=== PATIENT | male | born 1965 | race Caucasian/White ===

== ENCOUNTER 2017-01-29 16:41 | Emergency (ER) | payer MEDICAID ==
[2017-01-29 16:51] VITALS: BP 106/71; PULSE 84; RESP 18; TEMP 97.6; BMI 25.6
--- NOTE | 2017-01-29 17:27 | C.PDOC ---
History Of Present Illness 51 yr old male presents to the ER with complaints of intermittent pain over the back of neck for the past 2 months. Patient states the pain is localized from occipital area down to the upper back, describes as "stiffness", worse with head rotation. Otherwise, pt denies trauma or injury, fever, chills, recent illness, vision changes, focal deficits, denies severe headache, dizziness, nausea, vomiting, sore throat, CP, SOB, dyspnea, denies weakness or numbness to B/L UEs. Ambulate to ED for evaluation, not in any apparent distress. Time Seen by Provider: 01/29/17 16:56 Chief Complaint (Nursing): Headache History Per: Patient History/Exam Limitations: no limitations Onset/Duration Of Symptoms: Intermittent Episodes (2 months ) Past Medical History Reviewed: Historical Data, Nursing Documentation, Vital Signs Vital Signs: Last Vital Signs Temp 97.6 F 01/29/17 18:23 Pulse 84 01/29/17 18:23 Resp 18 01/29/17 18:23 BP 106/71 01/29/17 18:23 Pulse Ox 100 01/29/17 18:23 - Medical History PMH: Chronic Kidney Disease - [facility] Procedures ANAL FISTULECTOMY (12/01/14) RADICAL EXCIS SKIN LES (12/01/14) Family History: States: No Known Family Hx - Social History Hx Tobacco Use: No Hx Alcohol Use: No Hx Substance Use: No - Immunization History Hx Tetanus Toxoid Vaccination: No Hx Influenza Vaccination: No Hx Pneumococcal Vaccination: No Review Of Systems Except As Marked, All Systems Reviewed And Found Negative. Constitutional: Negative for: Fever, Chills Eyes: Negative for: Vision Change Gastrointestinal: Negative for: Nausea, Vomiting Musculoskeletal: Positive for: Neck Pain (Occipital area down to the upper back) Neurological: Negative for: Weakness, Numbness, Headache, Dizziness Physical Exam - Physical Exam Appears: Well, Non-toxic, No Acute Distress Skin: Warm, Dry, No Rash Head: Normacephalic Eye(s): bilateral: PERRL Oral Mucosa: Moist, No Drooling, No Trismus Neck: Normal ROM, No Decreased ROM, Trachea Midline, No Midline Cervical Tenderness, Paracervical Tenderness (diffuse paraspinal cervical tenderness extends from occipital area down to upper back with mod muscle spasm. no midline tenderness. no skin changes.), Supple Chest: Symmetrical, No Tenderness Cardiovascular: Rhythm Regular, No Murmur Respiratory: No Decreased Breath Sounds, No Accessory Muscle Use, No Rales, No Rhonchi, No Stridor, No Wheezing Gastrointestinal/Abdominal: Soft, No Tenderness Back: No CVA Tenderness Extremity: No Pedal Edema, No Deformity, No Swelling Neurological/Psych: Oriented x3, Normal Speech, Normal Motor, Normal Sensation, Normal Reflexes ED Course And Treatment O2 Sat by Pulse Oximetry: 99 Pulse Ox Interpretation: Normal - Other Rad X-Ray - Cervical Spine X-Ray: Viewed By Me Interpretation: no acute fx or sublux Progress Note: On re-evaluation, pt is afebrile, hemodynamicaly stable. NOn- toxic. Tolerate Po well in Ed. PulseOx 100% RA. Head: AT/NC. neck: Supple, (- ) JVD, (-) meningeal sign. Exam c/w cervical strain. ENT: exam no acute findings. Lungs: CTA B/L, BS equal B/L. neurologicaly intact. Imaging review and appears normal. Pt advised on course of ds. ref. to f/u with PMD in 2-3 days for re-eavl. return to ED if any worsening or new changes. Medical Decision Making Medical Decision Making: PLAN: * X-Ray - Cervical Spine * Tramadol PO * Valium PO Disposition Counseled Patient/Family Regarding: Studies Performed, Diagnosis, Need For Followup, Rx Given - Disposition Referrals: [facility] [Outside] Disposition: HOME/ ROUTINE Disposition Time: 17:39 Condition: STABLE Additional Instructions: Light duty to neck area, no physical activity for 1 week Take pain medication as need Follow up with PMD in 2-3 days for re-evaluation. Return to Ed if any worsening or new changes. Prescriptions: Methocarbamol [Robaxin] 500 mg PO TID #14 tab Naproxen [Naprosyn] 1 tab PO BID PRN #25 tab PRN Reason: Pain traMADol [Ultram] 50 mg PO TID #7 tab Instructions: Cervical Sprain (ED) Print Language: YI - Clinical Impression Clinical Impression: Cervical strain - PA / BUYER INTERN / Resident Statement MD/DO has reviewed & agrees with the documentation as recorded. - Scribe Statement The provider has reviewed the documentation as recorded by the Scribe Swapna Hadley All medical record entries made by the Scribe were at my direction and personally dictated by me. I have reviewed the chart and agree that the record accurately reflects my personal performance of the history, physical exam, medical decision making, and the department course for this patient. I have also personally directed, reviewed, and agree with the discharge instructions and disposition.
--- NOTE | 2017-01-29 18:02 | RAD ---
PROCEDURE: Cervical Spine Radiographs. HISTORY: Pain. COMPARISON: None available. FINDINGS: BONES: Straightening of the normal cervical lordosis may be related to muscle spasm or positioning. No acute displaced fracture identified. Dens tip obscured. DISC SPACES: Unremarkable. SOFT TISSUES: Unremarkable. No prevertebral soft tissue swelling. OTHER FINDINGS: None. IMPRESSION: Straightening of the normal cervical lordosis may be related to muscle spasm or positioning. The dens tip is obscured. No acute displaced fracture or subluxation identified.
[2017-01-29 21:34] VITALS: O2SAT 99
== END 2017-01-29 18:23 | disposition home or self-care (01) ==
LOC: C.ER 16:41
DX: S16.1XXA Strain of muscle, fascia and tendon at neck level, initial encounter (principal); X58.XXXA Exposure to other specified factors, initial encounter; Y93.9 Activity, unspecified; Y92.9 Unspecified place or not applicable

== ENCOUNTER 2018-03-17 08:55 | Emergency (ER) | payer MEDICAID, OTHER ==
[2018-03-17 08:59] VITALS: BMI 23.8
[2018-03-17 09:00] VITALS: TEMP 98.6
[2018-03-17] MEDS ORDERED: Sodium Chloride 0.9% 1,000 ML IV ONE (09:20)
[2018-03-17 09:42] LABS: BASO # 0.1 K/uL (0.0-0.2); BASO % 0.6 % (0.0-2.0); EOS # 0.1 K/uL (0.0-0.7); HEMOGLOBIN 13.8 g/dL (12.0-18.0); LYMPH # 1.1 K/uL (1.0-4.3); LYMPH % 14.2 % (20.0-40.0); MEAN CELL VOLUME 88.9 fL (80.0-94.0); MEAN CORPUSCULAR HEMOGLOBIN 31.2 pg (27.0-31.0); MEAN CORPUSCULAR HGB CONC 35.1 g/dL (33.0-37.0); MEAN PLATELET VOLUME 8.2 fL (7.2-11.7); MONO # 0.6 K/uL (0.0-0.8); MONO % 7.7 % (0.0-10.0); NEUT # 6.1 K/uL (1.8-7.0); NEUT % 76.5 % (50.0-75.0); RBC 4.43 Mil/uL (4.40-5.90); RED CELL DISTRIBUTION WIDTH 13.6 % (11.5-14.5); WHITE BLOOD COUNT 7.9 K/uL (4.8-10.8)
[2018-03-17 09:50] LABS: ALB/GLOB RATIO 1.4 (1.0-2.1); ALBUMIN 3.9 g/dL (3.5-5.0); ALT/SGPT 27 U/L (21-72); AST/SGOT 27 U/L (17-59); BLOOD UREA NITROGEN 14 mg/dL (9-20); CALCIUM 8.9 mg/dl (8.6-10.4); GFR AFRICAN-AMERICAN > 60; GFR NON-AFRICAN AMERICAN > 60
--- NOTE | 2018-03-17 09:50 | RAD ---
Date of service: 03/17/2018 HISTORY: SOB COMPARISON: No prior. TECHNIQUE: Chest PA and lateral FINDINGS: LUNGS: No active pulmonary disease. PLEURA: No significant pleural effusion identified. No pneumothorax apparent. CARDIOVASCULAR: Normal. OSSEOUS STRUCTURES: No significant abnormalities. VISUALIZED UPPER ABDOMEN: Normal. OTHER FINDINGS: None. IMPRESSION: No active disease.
--- NOTE | 2018-03-17 10:03 | C.PDOC ---
History Of Present Illness 52yo male, comes to ER for evaluation of a headache and vomiting since last night. Patient states he had some visual problems last night but resolved with visual problems on and off this morning. He denies any new weakness, numbness or tingling. He also denies any pertinent past medical history, and denies being on blood thinners. He offers no other medical complaints. Time Seen by Provider: 03/17/18 08:56 Chief Complaint (Nursing): Headache History Per: Patient History/Exam Limitations: no limitations Onset/Duration Of Symptoms: Days Current Symptoms Are (Timing): Still Present Severity: Mild Quality: "Pain" Preceeding Symptoms: Visual Disturbances Associated Symptoms: Photophobia, Other (double vision). denies: Blurred Vision , Nausea, Vomiting, Extremity Weakness Recent travel outside of the [place]: No Additional History Per: Patient Past Medical History Reviewed: Historical Data, Nursing Documentation, Vital Signs Vital Signs: Last Vital Signs Temp 98.6 F 03/17/18 08:59 Pulse 61 03/17/18 13:21 Resp 12 03/17/18 13:21 BP 109/68 03/17/18 13:21 Pulse Ox 98 03/17/18 14:20 - Medical History PMH: Chronic Kidney Disease Surgical History: No Surg Hx - [facility] Procedures ANAL FISTULECTOMY (12/01/14) RADICAL EXCIS SKIN LES (12/01/14) Family History: States: No Known Family Hx - Social History Hx Tobacco Use: No Hx Alcohol Use: No Hx Substance Use: No - Immunization History Hx Tetanus Toxoid Vaccination: No Hx Influenza Vaccination: No Hx Pneumococcal Vaccination: No Review Of Systems Except As Marked, All Systems Reviewed And Found Negative. Constitutional: Negative for: Fever, Chills Eyes: Positive for: Vision Change (now resolved) Cardiovascular: Negative for: Chest Pain Respiratory: Negative for: Shortness of Breath Gastrointestinal: Negative for: Abdominal Pain Musculoskeletal: Negative for: Back Pain Neurological: Positive for: Headache. Negative for: Weakness, Numbness, Incoordination, Change in Speech, Altered Mental Status, Dizziness Physical Exam - Physical Exam Appears: Non-toxic, No Acute Distress Skin: Warm, Dry Head: Atraumatic, Normacephalic, No Tenderness Eye(s): bilateral: Normal Inspection, PERRL, EOMI Ear(s): Bilateral: Normal Oral Mucosa: Moist Neck: Normal ROM, Supple Chest: Symmetrical Cardiovascular: Rhythm Regular Respiratory: Normal Breath Sounds Gastrointestinal/Abdominal: Normal Exam, Soft, No Tenderness Back: Normal Inspection Extremity: Normal ROM, No Tenderness, No Pedal Edema Neurological/Psych: Oriented x3, Normal Speech, Normal Cognition, Normal Cranial Nerves, Normal Motor, Normal Sensation, No Response To Commands Gait: Steady Other Neurological Findings: No Facial Palsy ED Course And Treatment - Laboratory Results Result Diagrams: 03/17/18 09:37 03/17/18 09:37 Lab Interpretation: Normal ECG: Interpreted By Me ECG Rhythm: Sinus Rhythm ECG Interpretation: No Acute Changes Rate From EC O2 Sat by Pulse Oximetry: 98 (RA) Pulse Ox Interpretation: Normal - Radiology CXR: Interpreted by Ct CXR Interpretation: Yes: No Acute Disease - CT Scan/US No standard instances Other Rad Studies (CT/US): Read By Radiologist, Radiology Report Reviewed CT/US Interpretation: DWI: No evidence of an acute or early subacute infarction. BRAIN PARENCHYMA: The punctate long TR hyper intensity at the right frontal deep white matter of uncertain origin. No additional white matter signal changes appreciated including at the corpus callosum. May reflect limited chronic microangiopathy though other etiologies are possible. The brainstem and cerebellum are normal intrinsic signal. There is no mass effect and sulcal and cisternal patterns appear unremarkable. Overall francis-white matter differentiation remains normal appearing. VENTRICLES: Unremarkable. No hydrocephalus. CRANIUM: Unremarkable. ORBITS: Grossly unremarkable. PARANASAL SINUSES/MASTOIDS: Clear. VASCULAR SYSTEM: Skull base flow voids intact. OTHER FINDINGS: None. IMPRESSION: 1. No evidence of an acute or subacute brain infarction at this time. No mass effect, cortical edema or suspicious extra-axial fluid collection. 2. A punctate focus of long TR hyperintensity is identified in the deep right frontal white matter of uncertain origin, with remaining white matter normal appearing. This could represent limited early chronic microangiopathy, though its origin is ultimately nonspecific. FINDINGS: HEMORRHAGE: No intracranial hemorrhage. BRAIN: No mass effect or edema. No atrophy or chronic microvascular ischemic changes. VENTRICLES: Unremarkable. No hydrocephalus. CALVARIUM: Unremarkable. PARANASAL SINUSES: Unremarkable as visualized. No significant inflammatory changes. MASTOID AIR CELLS: Unremarkable as visualized. No inflammatory changes. OTHER FINDINGS: None. IMPRESSION: Normal CT of the Head. No intracranial mass, hemorrhage or evidence of acute infarct. Progress Note: CT Head w/o contrast, labs and EKG ordered. Patient given IV Fluids, Reglan 10mg IV and tylenol. On re-evaluation ambulating with steady gait, feeling better, in no distress Reassessment Condition: Improved Medical Decision Making Medical Decision Making: On re-evaluation lungs clear, neuro intact, ambulating with steady gait Disposition Counseled Patient/Family Regarding: Studies Performed, Diagnosis, Need For Followup, Rx Given - Disposition Referrals: [facility] [Outside] [facility] [Outside] Disposition: HOME/ ROUTINE Disposition Time: 13:50 Condition: STABLE Additional Instructions: Follow up with your PMD or clinic for further evaluation Return to ED if any increase symptoms Prescriptions: Acetaminophen/Butalbital/Caf [Fioricet] 1 tab PO TID PRN #12 tab PRN Reason: Headache Instructions: Migraine Headache (DC) Forms: [employer] (Irish) - POA Present On Arrival: None - Clinical Impression Clinical Impression: Migraine, Headache - Scribe Statement The provider has reviewed the documentation as recorded by the Allan Hugo Provider Attestation: All medical record entries made by the Allan were at my direction and personally dictated by me. I have reviewed the chart and agree that the record accurately reflects my personal performance of the history, physical exam, medical decision making, and the department course for this patient. I have also personally directed, reviewed, and agree with the discharge instructions and disposition.
[2018-03-17] MEDS ORDERED: Sodium Chloride 0.9% 1,000 ML ONE (10:04)
--- NOTE | 2018-03-17 10:08 | CT ---
Date of service: 03/17/2018 PROCEDURE: CT HEAD WITHOUT CONTRAST. HISTORY: R/O Bleed COMPARISON: None available. TECHNIQUE: Axial computed tomography images were obtained through the head/brain without intravenous contrast. Radiation dose: Total exam DLP = 946.28 mGy-cm. This CT exam was performed using one or more of the following dose reduction techniques: Automated exposure control, adjustment of the mA and/or kV according to patient size, and/or use of iterative reconstruction technique. FINDINGS: HEMORRHAGE: No intracranial hemorrhage. BRAIN: No mass effect or edema. No atrophy or chronic microvascular ischemic changes. VENTRICLES: Unremarkable. No hydrocephalus. CALVARIUM: Unremarkable. PARANASAL SINUSES: Unremarkable as visualized. No significant inflammatory changes. MASTOID AIR CELLS: Unremarkable as visualized. No inflammatory changes. OTHER FINDINGS: None. IMPRESSION: Normal CT of the Head. No intracranial mass, hemorrhage or evidence of acute infarct.
[2018-03-17 10:56] LABS: URINE AMORPHOUS SEDIMENT RARE /ul (<OCC); URINE BACTERIA RARE (<OCC); URINE BILIRUBIN NEGATIVE (NEGATIVE); URINE BLOOD NEGATIVE (NEGATIVE); URINE CLARITY Hazy (Clear); URINE COLOR Yellow (YELLOW); URINE GLUCOSE (UA) NORMAL (Normal); URINE LEUKOCYTE ESTERASE NEG Leu/uL (Negative); URINE PROTEIN NEGATIVE (NEGATIVE); URINE UROBILINOGEN NORMAL mg/dL (0.2-1.0)
[2018-03-17 11:19] VITALS: RESP 12
--- NOTE | 2018-03-17 12:56 | MRI ---
Date of service: 03/17/2018 PROCEDURE: MRI BRAIN WITHOUT CONTRAST HISTORY: visual problems COMPARISON: None. TECHNIQUE: Multiplanar, multisequence MR images of the brain were obtained without intravenous contrast enhancement. FINDINGS: HEMORRHAGE: None DWI: No evidence of an acute or early subacute infarction. BRAIN PARENCHYMA: The punctate long TR hyper intensity at the right frontal deep white matter of uncertain origin. No additional white matter signal changes appreciated including at the corpus callosum. May reflect limited chronic microangiopathy though other etiologies are possible. The brainstem and cerebellum are normal intrinsic signal. There is no mass effect and sulcal and cisternal patterns appear unremarkable. Overall francis-white matter differentiation remains normal appearing. VENTRICLES: Unremarkable. No hydrocephalus. CRANIUM: Unremarkable. ORBITS: Grossly unremarkable. PARANASAL SINUSES/MASTOIDS: Clear VASCULAR SYSTEM: Skull base flow voids intact. OTHER FINDINGS: None. IMPRESSION: 1. No evidence of an acute or subacute brain infarction at this time. No mass effect, cortical edema or suspicious extra-axial fluid collection. 2. A punctate focus of long TR hyperintensity is identified in the deep right frontal white matter of uncertain origin, with remaining white matter normal appearing. This could represent limited early chronic microangiopathy, though its origin is ultimately nonspecific.
[2018-03-17 13:22] VITALS: BP 109/68; PULSE 61
[2018-03-17 13:47] VITALS: O2SAT 98
--- NOTE | 2018-03-17 17:20 | CARD ---
APPROVED REPORT Date of service: 03/17/2018 EKG Measurement Heart [id number] <Conclusion> Normal sinus rhythm Incomplete right bundle branch block Borderline ECG
== END 2018-03-17 14:36 | disposition home or self-care (01) ==
LOC: C.ER 08:55
DX: G43.909 Migraine, unspecified, not intractable, without status migrainosus (principal)
CPT/HCPCS: 70450; 70551; 71046; 80053; 81001; 82948; 85025; 92610; 93005; 96361; 96374; 99285; G8996; G8997; G8998; J2765; J7030